=== PATIENT | female | born 1990 ===

== ENCOUNTER 2017-12-23 10:29 | Emergency (ER) | payer MEDICAID ==
--- NOTE | 2017-12-23 11:13 | ED PDOC ---
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 states she is currently approximately 9-10 weeks . States that yesterday she developed mild vaginal spotting without pain and today she developed heavy vaginal bleeding and en route to the ED she developed intermittent pelvic cramping. Also states she is now passing large clots. Of note, pt. had 1 previous miscarriage and she was approximately 6 months at the time. She has 1 healthy child. Further reports she was seen in a OBGYN clinic in [facility] where she had an US done 2 weeks ago and was told that everything was normal. Denies dysuria, weakness, previous blood transfusions, abdominal concepcion, vomiting, diarrhea. Abnormal Vaginal Bleeding: Yes Last Menstral Period: 10/01/2017 Past Medical History Reviewed: Historical Data, Nursing Documentation, Vital Signs Vital Signs: Last Vital Signs Temp 98.4 F 12/23/17 10:32 Pulse 88 12/23/17 10:32 Resp 20 12/23/17 10:32 BP 110/61 12/23/17 10:32 Pulse Ox 99 12/23/17 10:32 - Family History Family History: States: No Known Family Hx - Home Medications Home Medications: Ambulatory Orders Medication Instructions Recorded Nitrofurantoin Macrocrystals 100 mg PO BID #14 cap 12/23/17 [Macrobid] - Allergies Allergies/Adverse Reactions: Allergies Allergy/AdvReac Type Severity Reaction Status Date / Time No Known Allergies Allergy Verified 12/23/17 10:32 Review of Systems ROS Statement: Except As Marked, All Systems Reviewed And Found Negative Genitourinary Female: Positive for: Vaginal Bleeding, Pelvic Pain Physical Exam - Physical Exam Appears: Positive for: Well, Non-toxic, No Acute Distress Skin: Positive for: Normal Color, Warm. Negative for: Rash Eye Exam: Positive for: Normal appearance Cardiovascular/Chest: Positive for: Regular Rate, Rhythm Respiratory: Positive for: Normal Breath Sounds Gastrointestinal/Abdominal: Positive for: Normal Exam, Soft. Negative for: Tenderness Pelvic Exam: Positive for: No Masses, Active Bleeding, Other (Jagruti SUMNER present as practicing md anesthesiologist during entire pelvic exam). Negative for: Speculum Exam Normal (blood in vaginal vault - limiting physical exam), Lesions, Mass, Ulcers Back: Positive for: Normal Inspection. Negative for: L CVA Tenderness, R CVA Tenderness Neurologic/Psych: Positive for: Alert, Oriented (x 3), Gait (steady, unassisted) . Negative for: Aphasia, Facial Droop - Laboratory Results Result Diagrams: 12/23/17 11:22 12/23/17 11:22 - ECG O2 Sat by Pulse Oximetry: 99 - Progress ED Course And Treament: Labs, OB TVUS, IV LR bolus x 1 ordered. 1237 OB TVUS: Thickened heterogeneous endometrial echo complex. Fluid and debris identified within the canal. No visible gestational sac. 1430 Case and diagnostic results d/w Dr. Hernandez, OBGYN online facilitator, who agrees with care and states pt. should receive Cytotec 800mcg PO once and does not require an Rx for it. Pt. should be observed in ED for a few hours for any increase in bleeding. Pt. can f/u with her OBGYN. 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 and informed of results and plan. Agree with care. Cytotec 800mcg PO, macrobid 100mg PO ordered 1621 On re-evaluation, pt. reports bleeding and pain have improved. Bleeding is scant now. Advised to f/u with OBGYN for further evaluation. Disposition - Clinical Impression Clinical Impression: Spontaneous , Urinary tract infection - Patient ED Disposition Is Patient to be Admitted: No - Disposition Referrals: Liseth Palmer [Outside] Disposition: Routine/Home Disposition Time: 16:23 Condition: STABLE Additional Instructions: ALBERTO DÍAZ, thank you for letting us take care of you today. Your provider was Blayne Kingsley MD and you were treated for 10 WEEKS; VAGINAL BLEEDING. The emergency medical care you received today was directed at your acute symptoms. If you were prescribed any medication, please fill it and take as directed. It may take several days for your symptoms to resolve. Return to the Emergency Department if your symptoms worsen, do not improve, or if you have any other problems. Please contact your doctor or call one of the physicians/clinics you have been referred to that are listed on the Patient Visit Information form that is included in your discharge packet. Bring any paperwork you were given at discharge with you along with any medications you are taking to your follow up visit. Our treatment cannot replace ongoing medical care by a primary care provider outside of the emergency department. Thank you for allowing the [facility] team to be part of your care today. If you had an X-Ray or CT scan: A Radiologist will review the ED reading if any change in treatment is needed we will contact you. If you had a blood, urine, or wound culture: It will take several days for the results, if any change in treatment is needed we will contact you. If you had an STI test: It will take 48 hours for the results. Please call after 1 week if you have not heard back. Prescriptions: Nitrofurantoin Macrocrystals [Macrobid] 100 mg PO BID #14 cap Instructions: Miscarriage (DC), Dealing With Miscarriage, Urinary Tract Infection, Adult (DC) Forms: [employer] ([place]) Print Language: KOSOVAN
[2017-12-23] MEDS ORDERED: Lactated Ringer's 1,000 ML IV SCH ×2 (11:15→15:15)
[2017-12-23 11:29] LABS: BASO % 0.4 % (0.0-2.0); EOS # 0.1 K/uL (0.0-0.7); EOS % 1.7 % (0.0-4.0); LYMPH # 1.3 K/uL (1.0-4.3); MEAN CELL VOLUME 73.3 fl (81.0-99.0); MEAN CORPUSCULAR HEMOGLOBIN 23.7 pg (27.0-31.0); MEAN CORPUSCULAR HGB CONC 32.3 g/dL (33.0-37.0); MONO # 0.3 K/uL (0.0-0.8); MONO % 3.3 % (0.0-10.0); NEUT # 6.6 K/uL (1.8-7.0); NEUT % 78.6 % (50.0-75.0); RBC 5.05 Mil/uL (3.80-5.20); RED CELL DISTRIBUTION WIDTH 21.5 % (11.5-14.5); WHITE BLOOD COUNT 8.3 K/uL (4.8-10.8)
[2017-12-23 11:45] LABS: SQUAMOUS EPITHIAL 8 /hpf (0-5); URINE BACTERIA RARE (<OCC)
[2017-12-23 11:48] LABS: URINE BILIRUBIN LARGE (NEGATIVE); URINE CLARITY SLIGHT-CLOUDY (Clear); URINE COLOR DARK YELLOW (YELLOW); URINE GLUCOSE (UA) 100 mg/dL (Normal)
[2017-12-23 11:49] LABS: URINE BLOOD LARGE (NEGATIVE); URINE LEUKOCYTE ESTERASE LARGE Leu/uL (Negative); URINE PROTEIN >=300 mg/dL (NEGATIVE)
[2017-12-23 12:02] LABS: BLOOD UREA NITROGEN 7 mg/dl (7-17); CALCIUM 9.5 mg/dL (8.4-10.2); GFR NON-AFRICAN AMERICAN > 60
[2017-12-23 12:03] LABS: ALT/SGPT 17 U/L (9-52); AST/SGOT 18 U/L (14-36)
[2017-12-23 12:04] LABS: ALB/GLOB RATIO 1.3 (1.0-2.1); ALBUMIN 4.3 g/dL (3.5-5.0)
--- NOTE | 2017-12-23 12:38 | US ---
Date of service: 12/23/2017 HISTORY: Pelvic cramping, vaginal bleeding. Recently passing clots. Severe vomiting. LMP 10/01/2017. Beta HCG results: 3743 units. COMPARISON: None available. TECHNIQUE: Transvaginal only. Real -time technique with 2D, duplex and color Doppler FINDINGS: UTERUS: Measures 6.5 x 7.6 x 11.5 cm. Normal in size, heterogeneous echo characteristics. No fibroid or other mass lesion seen. ENDOMETRIUM: Measures 14.4 mm in diameter. Thickened heterogeneous endometrium with increased vascularity. Trace fluid and debris identified within the endometrial canal. CERVIX: Fluid and debris identified within the cervical canal. RIGHT OVARY: Measures 2 x 2 x 3.2 cm. No solid mass. Normal flow. LEFT OVARY: Measures 1.1 x 3 x 4.4 cm. No solid mass. Normal flow. Cyst identified measuring 1.5 x 1.4 x 1.8 cm. FREE FLUID: No significant free fluid noted. OTHER FINDINGS: None. IMPRESSION: Thickened heterogeneous endometrial echo complex. Fluid and debris identified within the canal. No visible gestational sac.
[2017-12-23 13:14] VITALS: RESP 19
[2017-12-23 15:12] VITALS: TEMP 97
[2017-12-23 16:47] VITALS: BP 130/78; PULSE 80; O2SAT 98
== END 2017-12-23 16:49 | disposition home or self-care (01) ==
LOC: H.ER 10:29
DX: O03.9 Complete or unspecified spontaneous abortion without complication (principal); O23.41 Unspecified infection of urinary tract in pregnancy, first trimester; N39.0 Urinary tract infection, site not specified; Z3A.10 10 weeks gestation of pregnancy
CPT/HCPCS: 76817; 80053; 81003; 81025; 84702; 85025; 86850; 86900; 87086; 88305; 99284; J7120